=== PATIENT | female | born 1980 | race Caucasian/White ===

== ENCOUNTER → 2017-11-19 10:12 | Outpatient (CLI) | payer OTHER, MEDICAID, SELFPAY ==
[2017-11-19 11:00] LABS: Basophils Percent Auto 0.7 % (0-2); Eosinophils Percent Auto 0.5 % (2-4); Hematocrit 38.8 % (36-46); Hemoglobin 12.8 g/dL (12.0-16.0); Mean Corpuscular HGB Conc 33.1 % (30-36); Mean Corpuscular Hemoglobin 28.4 PG (26-34); Mean Corpuscular Volume 85.8 fL (80-100); Monocytes Percent Auto 5.3 % (3-14); Neutrophils Absolute Auto 5000 /uL (3000-5900); Neutrophils Percent Auto 72.5 % (50-75); Red Blood Cell Count 4.52 X10^6/uL (4.0-5.2); Red Cell Distribution Width 14.8 % (11.6-14.8); White Blood Cell Count 6.9 X10^3/uL (4.5-11.0)
[2017-11-19 11:06] LABS: Add Manual Diff / Slide Review SLIDE REVIEW; Platelet Count 184 X10^3/uL (150-400)
[2017-11-19 11:10] LABS: Alanine Aminotransferase 27 IU/L (9-52); Albumin 4.5 g/dL (3.5-5.0); Albumin Globulin Ratio 1.7 (1.0-2.8); Alkaline Phosphatase 66 U/L (38-126); Aspartate Aminotransferase 23 IU/L (14-36); BUN Creatinine Ratio 12.9 (6-22); Bilirubin Total 0.3 mg/dL (0.2-1.3); Calcium 9.2 mg/dL (8.4-10.2); Cholesterol 230 mg/dL (140-199); Estimated Glomerular Filt Rate > 60.0 mL/min (>60); Globulin 2.7 g/dL (1.7-4.1); Glucose 90 mg/dL (70-100); HDL Cholesterol 61 mg/dL (40-60); HEMOLYSIS < 15 (0-50); LDL Cholesterol Calculated 157 mg/dL (<100); Potassium 4.7 mmol/L (3.4-5.1); Sodium 141 mmol/L (137-145); Total Protein 7.2 g/dL (6.3-8.2); Triglycerides 62 mg/dL (35-150)
== END ==
PROVIDERS: PCP Physician Assistant; Visit Provider Physician Assistant
DX: Z51.81 Encounter for therapeutic drug level monitoring (principal); E78.2 Mixed hyperlipidemia; F32.9 Major depressive disorder, single episode, unspecified; R23.9 Unspecified skin changes
CPT/HCPCS: 36415; 80053; 80061; 85025

== ENCOUNTER 2017-11-19 15:23 | Emergency (ER) | payer OTHER, MEDICAID, SELFPAY ==
[2017-11-19 15:29] VITALS: BP 184/106; PULSE 152; RESP 28; TEMP 36.9; O2SAT 100; BMI 30.7
--- NOTE | 2017-11-19 15:31 | ED.NEUROSD ---
HPI - Neuro Symptoms/Deficit General Chief Complaint: Neuro Symptoms/Deficit Stated Complaint: Headache Time Seen by Provider: 11/19/17 15:31 Source: patient Mode of arrival: ambulatory Limitations: no limitations History of Present Illness HPI Narrative: 37-year-old female with a history of Nicole's palsy and left-sided facial numbness presents concerned that she may have bleeding in her brain. She had an MRI performed September that was initially read as normal, but after seeing neurologist on Wednesday, an addendum was added with a note that a 7 mm AVM may be present and conventional angiography was recommended if symptomatic. Patient notes that starting last night and into today the left-sided facial numbness has significantly increased and she is quite concerned. She also notes that she has a lot of anxiety about this and much of her worry started while she was on her home computer reviewing her MRI scan. Denies headache or weakness at this time Related Data Home Medications Medication Instructions Recorded Confirmed cetirizine [Zyrtec] 10 mg PO DAILY #0 08/30/12 11/19/17 fexofenadine 180 mg PO PRN #0 08/30/12 11/19/17 loratadine [Claritin] 10 mg PO QDAY #0 08/30/12 11/19/17 calcium carb-magnesium carb 1 tab PO QDAY #0 05/13/16 11/19/17 multivitamin [Multiple Vitamins] 1 tab PO QDAY #0 07/28/16 11/19/17 acetaminophen 325 mg PO PRN PRN 11/19/17 11/19/17 ibuprofen 200 mg PO PRN PRN 11/19/17 11/19/17 sertraline [Zoloft] 100 mg PO QHS 11/19/17 11/19/17 Previous Rx's Medication Instructions Recorded ondansetron 4 mg PO Q6-8HP PRN #30 tab 10/14/17 lamotrigine 100 mg tablet 50 mg PO TID #45 tab 11/09/17 Allergies Allergy/AdvReac Type Severity Reaction Status Date / Time Penicillins AdvReac Severe TONGUE / Unverified 11/09/17 12:51 FACIAL SWELLING tramadol AdvReac Intermediate BAD Unverified 11/09/17 12:51 HEADACHES, VOMITING TREES Allergy Severe SEVERE Uncoded 11/09/17 12:51 HIVES Review of Systems Review of Systems All systems reviewed & are unremarkable except as noted in HPI and below Constitutional Denies chills, Denies fever(s), Denies lethargy and Denies weakness Eyes Denies change in vision, Denies eye discharge, Denies irritation and Denies loss of vision ENT Ears, Nose, Mouth, and Throat: Denies change in voice, Denies neck pain and Denies sore throat Cardiovascular Denies chest pain, Denies irregular heart rhythm, Denies lightheadedness, Denies palpitations, Denies dyspnea, Denies dyspnea on exertion and Denies orthopnea Respiratory Denies cough, Denies dyspnea, Denies dyspnea on exertion and Denies wheezing Gastrointestinal Gastrointestinal: Denies abdominal pain, Denies change in bowel habits, Denies diarrhea, Denies nausea and Denies vomiting Genitourinary Denies hematuria, Denies flank pain, Denies urinary incontinence and Denies urinary urgency Musculoskeletal Denies abnormal gait, Denies neck pain, Reports numbness and Reports tingling Integumentary/Breasts Denies pruritus, Denies erythema, Denies rash and Denies wounds Neurologic Denies abnormal speech, Denies abnormal gait, Denies confusion, Denies loss of vision, Reports numbness, Reports tingling, Reports paresthesias and Denies weakness Psychiatric Denies anxiety, Denies confusion, Denies depression, Denies homicidal ideation and Denies suicidal ideation Endocrine Denies palpitations Hematologic/Lymphatic Denies easy bruising Allergic/Immunologic Denies wheezing PFSH Medical History Depression (Chronic 11/03/10) Mixed hyperlipidemia (Chronic 02/06/15) Binge eating disorder (Chronic 02/06/15) Gastroesophageal reflux disease (Chronic 02/06/15) Scoliosis (and kyphoscoliosis), idiopathic (Chronic 02/06/15) Spinal stenosis of lumbar region without neurogenic claudication (Chronic 02/06/15) Surgical History History of tonsillectomy Status post adenoidectomy Family History Father Age: 54 Hypertension Mother Age: 53 Arthritis Grandfather Alcoholic Social History Smoking Status: Former smoker Exam Initial Vital Signs Initial Vital Signs: Vital Signs Temperature 98.5 F 11/19/17 15:29 Pulse Rate 152 H 11/19/17 15:29 Respiratory Rate 28 H 11/19/17 15:29 Blood Pressure 184/106 H 11/19/17 15:29 Pulse Oximetry 100 11/19/17 15:29 Const General: cooperative and well developed Nutritional Appearance: well nourished Orientation: alert, awake, oriented x3 and not confused HENVA Head: normocephalic and atraumatic Ears: external ears normal and TM's normal bilaterally Nose: external nose normal and No nasal discharge Face and sinus: sinuses nontender, face symmetric, no sinus tenderness and No dry mucous membranes Mouth: oral mucosae normal and moist mucous membranes Teeth and gingiva: dentition normal Throat: tonsils normal and uvula midline Eyes General: appearance normal, both eyes and all related structures Eyelids: eyelids normal Conjunctivae: conjunctivae normal Sclera: sclerae normal Pupils: PERRL EOM: EOM intact bilaterally Neck Neck: normal visual inspection, trachea midline, No lymphadenopathy, No midline deformity and No JVD Lymphatic: No lymphedema Chest Chest: normal inspection of the chest Resp Effort & Inspection: normal respiratory effort, able to speak in complete sentences, no respiratory distress and no use of accessory muscles Auscultation: clear to auscultation bilaterally, no rales, no rhonchi and no wheezes Cardio Rate: regular rate Rhythm: regular rhythm Heart Sounds: no click, no gallops, no murmurs and no rubs Pulses: normal peripheral pulses GI Inspection: non-distended Palpation: soft, no hepatosplenomegaly, No guarding, No pulsatile mass and No tender Auscultation: normal bowel sounds Back/Spine/Pelvis Back: No CVA tenderness Cervical Spine: cervical ROM normal and No pain with cervical ROM Thoracic/Lumbar Spine: thoracic and lumbar spine normal to inspection Skin General: no rashes or lesions noted, No jaundice and No petechiae Neuro General: alert, oriented x3, gait normal and no focal motor deficits Cranial Nerves: CN's II-XI intact bilaterally Speech: speech normal Motor: strength 5/5 throughout Sensory Exam: other (Patient notes diminished sensation of left side of face) Extrem General: full ROM, no clubbing, cyanosis or edema, no pedal edema and no calf tenderness Psych Appearance: well kempt Mental Status: mental status grossly normal and other (Very anxious and initially tearful) Mood: other (Very anxious and initially tearful) Attitude: cooperative Thought Content: normal and suicidality Judgment: judgment good Course Orders Ordered: ED Orders 11/19/17 15:31 CT head/brain wo con Stat Discontinued Medications Lorazepam (Ativan) 0.5 mg PO NOW ONE Stop: 11/19/17 16:31 Last Admin: 11/19/17 16:43 Dose: 0.5 mg Consultations Consultation #1: I discussed and reviewed patient's old MRI with Dr. Hari Santiago in Radiology. He recommends CT of the head without contrast for acute bleed evaluation. MRI is not indicated at this time. Time: 15:36 Vital Signs - 8 hr 11/19/17 15:29 11/19/17 16:35 11/19/17 17:08 Temperature 98.5 F Pulse Rate 152 H 98 H 75 Respiratory Rate 28 H 16 16 Blood Pressure 184/106 H Blood Pressure [Left Arm] 137/100 H 137/100 H Pulse Oximetry 100 100 100 MDM - Neuro Symptoms/Deficit Imaging Data CT scan - head: Radiologist's impression: PROCEDURE: CT HEAD/BRAIN WO CON INDICATIONS: left sided facial numbness TECHNIQUE: Noncontrast 4.5 mm thick angled axial sections acquired from the foramen magnum to the vertex, with coronal and sagittal reformats. For radiation dose reduction, the following was used: automated exposure control, adjustment of mA and/or kV according to patient size. COMPARISON: [facility], MR, BRAIN WITHOUT CONTRAST, 10/01/2017, 18:51. FINDINGS: Image quality: Excellent. CSF spaces: Basal cisterns are patent. No extra-axial fluid collections. Ventricles are normal in size and shape. Brain: No midline shift. No intracranial masses or hemorrhage. Multiple punctate calcifications noted in the right cerebellar hemisphere possibly to the vascular malformations. Mejia-white matter interface is normal. Skull and face: Calvarium and visualized facial bones are intact, without suspicious lesions. Sinuses: Visualized sinuses and mastoids are clear. IMPRESSION: No acute intracranial disease process. Dictated by: Elida Blackman MD, PhD on 11/19/2017 at 15:54 Approved by: Elida Blackman MD, PhD on 11/19/2017 at 16:02 [facility] Narrative Medical decision making narrative: 37-year-old female with a history of Nicole's palsy and what sounds to be recently diagnosed trigeminal neuralgia presenting with increasing numbness of the left side of her face and significant anxiety. She began having symptoms as she reviewed her MRI scans at home and saw things that she could not explain and was quite concerned. She thought there was midline shift the brain and there was significant blood in the cerebellum. 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 After significant reassurance here, repeat head imaging with CT at Radiology recommendation and Ativan, she felt much better and was discharged home with advice to continue to follow with Neurology and fill the scripts for the medication she was prescribed 3 days ago. Discharge Plan Departure Patient Disposition: Home, Self-Care Clinical Impression: Left sided numbness Discharge Date/Time: 11/19/17 17:41 Interventions: ED Discharge Assessment Last Done: 11/19/17 17:39 Instructions: DI for Headache Activity Restrictions/Additional Instructions: Thank you for trusting us with your care today. No dangerous findings were identified on your workup today. Please follow-up with your primary care provider or urologist if your symptoms are not improving. Return to the ER for new or worsening symptoms. Prescriptions: No Action lamotrigine [Lamictal] 100 mg tablet 50 mg PO TID Qty: 45 RF: 3 cetirizine [Zyrtec] 10 mg Tablet 10 mg PO DAILY Qty: 0 RF: 0 fexofenadine 180 MG tablet 180 mg PO PRN Qty: 0 RF: 0 loratadine [Claritin] 10 mg Tablet 10 mg PO QDAY Qty: 0 RF: 0 calcium carb-magnesium carb 1 tab PO QDAY Qty: 0 RF: 0 multivitamin [Multiple Vitamins] 1 EACH tablet 1 tab PO QDAY Qty: 0 RF: 0 ondansetron 4 MG tablet,disintegrating 4 mg PO Q6-8HP PRNQty: 30 RF: 1 acetaminophen 325 mg Tablet 325 mg PO PRN PRN (Reason: Headache) RF: 0 ibuprofen 200 mg Tablet 200 mg PO PRN PRN (Reason: Headache) RF: 0 sertraline [Zoloft] 100 MG tablet 100 mg PO QHS RF: 0
[2017-11-19 16:35] VITALS: BP 137/100; PULSE 98; RESP 16; O2SAT 100
[2017-11-19] MEDS: LORazepam 0.5 MG TABLET PO (16:43)
[2017-11-19 17:08] VITALS: BP 137/100; PULSE 75; RESP 16; O2SAT 100
== END 2017-11-19 17:41 | disposition home or self-care (01) ==
PROVIDERS: Emergency Provider Emergency Medicine; PCP Physician Assistant
DX: R20.0 Anesthesia of skin (principal)
CPT/HCPCS: 70450; 93041; 99283; 99291

== ENCOUNTER → 2017-12-13 06:28 | Outpatient (CLI) | payer OTHER, MEDICAID, SELFPAY ==
--- NOTE | 2017-12-13 | DI.MRI.S_ITS ---
PROCEDURE: MR BRAIN (IAC) WWO CON INDICATIONS: BELLS PALSY TECHNIQUE: Noncontrast sagittal T1 spin echo, axial FLAIR, axial gradient echo, axial diffusion and ADC through the brain. Axial thin-slice 3D CISS, coronal TruFISP, axial T1 spin echo with fat saturation through the internal auditory canals. After the administration of contrast, thin slice axial and coronal T1 spin echo with fat saturation through the internal auditory canals, and axial T1 spin echo with fat saturation through the brain. COMPARISON: [facility], CT, CT HEAD/BRAIN WO CON, 11/19/2017, 15:34. [facility], MR, BRAIN WITHOUT CONTRAST, 10/01/2017, 18:51. FINDINGS: Image quality: Excellent. Cerebellopontine angles: No cerebellopontine angle masses. Inner ear structures appear normally formed. No suspicious enhancement in the internal auditory canal or along the course of the 7th cranial nerve. CSF spaces: Ventricles are normal in size and shape. No extra-axial fluid collections. Basal cisterns are patent. Brain: No intracranial bleeds or mass effects. Mejia-white matter interface is intact. No abnormal intracranial brain parenchymal or cranial nerve enhancement. There is a venous angioma in the inferior right cerebellum, with an adjacent focus of hemosiderin deposition (previously present also on brain MRI performed 10/01/17). Diffusion weighted images demonstrate no acute ischemic insults. Brainstem appears normal. Normal intravascular flow voids are present. Skull and face: Calvarial marrow signal is normal. Orbits appear normal. Sinuses: Sinuses and mastoids are clear. IMPRESSION: The skull base cranial nerves appear normal, free of mass or abnormal enhancement. Incidental note is made of what appears to be inferior right cerebellar hemisphere venous angioma, with and draining vein tracking inferiorly along the anterior right side paramedian border of the cerebellum, with a nearby stable appearing focus of hemosiderin deposition within the substance of the right cerebellar hemisphere. This is best seen on the contrast enhanced series 13, image 5 and on the susceptibility sensitive series 10 image 4. Dictated by: Mele Ortiz M.D. on 12/13/2017 at 8:13 Approved by: Mele Ortiz M.D. on 12/13/2017 at 8:32
== END ==
PROVIDERS: PCP Physician Assistant; Visit Provider Psychiatry & Neurology Neurology
DX: G51.0 Bell's palsy (principal)
CPT/HCPCS: 70553

== ENCOUNTER → 2018-03-24 13:00 | Outpatient (CLI) | payer OTHER, MEDICAID, SELFPAY | PROVIDERS: PCP Physician Assistant | DX: Z23 Encounter for immunization (principal) | CPT/HCPCS: 90471; 90686 ==

== ENCOUNTER → 2018-07-08 07:26 | Outpatient (CLI) | payer OTHER, MEDICAID, SELFPAY ==
--- NOTE | 2018-07-08 | DI.MRI.S_ITS ---
PROCEDURE: MR HEAD/BRAIN WO/W CON INDICATIONS: CEREBROVASCULAR AVM TECHNIQUE: Noncontrast axial T1 spin echo, axial T2 fast spin echo, sagittal and axial FLAIR, coronal T2 fast spin echo, axial gradient echo, axial diffusion and ADC through the brain. After the administration of contrast, axial and coronal 3D VIBE or T1 spin echo with fat saturation through the brain. COMPARISON: [facility], MR, BRAIN WITHOUT CONTRAST, 10/01/2017, 18:51. [facility], MR, MR BRAIN (IAC) WWO CON, 12/13/2017, 7:12. FINDINGS: Image quality: Excellent. CSF Spaces: Basal cisterns are patent. No extra-axial fluid collections. Ventricles are normal in size and shape. Brain: No midline shift. No acute intracranial bleeds or masses. The 7 mm diameter focus of low gradient echo signal intensity within the right inferior cerebellum is unchanged. Branching enhancement within the right mid cerebellar hemisphere is present, as before, with a prominent draining vein, which drains into the right transverse sinus, as before. The brainstem appears normal. Diffusion-weighted images demonstrate no acute ischemic insults. No chronic ischemic insults. Normal intravascular flow voids are present. Skull and face: Calvarial marrow is normal in signal. Orbits appear normal. Sinuses: Sinuses and mastoids appear clear. IMPRESSION: 1. No change in right cerebellar venous angioma, with adjacent, presumably secondary/acquired cavernous hemangioma. Small amount of surrounding chronic hemorrhagic products is unchanged. 2. No acute process. Dictated by: Darlene Garcia M.D. on 07/08/2018 at 8:56 Approved by: Darlene Garcia M.D. on 07/08/2018 at 9:03
[2018-07-08 09:07] LABS: Cholesterol 224 mg/dL (140-199); HDL Cholesterol 51 mg/dL (40-60); LDL Cholesterol Calculated 154 mg/dL (<100); Triglycerides 97 mg/dL (35-150)
== END ==
PROVIDERS: PCP Physician Assistant; Visit Provider Specialist
DX: Q28.2 Arteriovenous malformation of cerebral vessels (principal); E78.2 Mixed hyperlipidemia
CPT/HCPCS: 36415; 70553; 80061

== ENCOUNTER → 2020-03-18 10:44 | Outpatient (CLI) | payer OTHER, SELFPAY ==
[2020-03-18 11:10] LABS: Add Manual Diff / Slide Review NO; Basophils Absolute Auto 100 /uL (0-100); Basophils Percent Auto 0.9 % (0-2); Eosinophils Absolute Auto 100 /uL (0-450); Eosinophils Percent Auto 1.1 % (2-4); Hematocrit 37.5 % (36-46); Lymphocytes Absolute Auto 1700 /uL (1100-4500); Lymphocytes Percent Auto 23.5 % (25-40); Mean Corpuscular Volume 81.1 fL (80-100); Monocytes Absolute Auto 500 /uL (0-900); Neutrophils Absolute Auto 5000 /uL (1500-7000); Neutrophils Percent Auto 67.5 % (50-75); Platelet Count 208 X10^3/uL (150-400); Red Blood Cell Count 4.62 X10^6/uL (4.0-5.2); Red Cell Distribution Width 18.1 % (11.6-14.8); White Blood Cell Count 7.4 X10^3/uL (4.5-11.0)
[2020-03-18 11:30] LABS: Erythrocyte Sedimentation Rate 13 MM/HR (0-20)
[2020-03-18 11:31] LABS: Alanine Aminotransferase 23 IU/L (<35); Albumin 4.1 g/dL (3.5-5.0); Albumin Globulin Ratio 1.6 (1.0-2.8); Alkaline Phosphatase 106 U/L (38-126); Aspartate Aminotransferase 24 IU/L (14-36); BUN Creatinine Ratio 11.7 (6-22); Bilirubin Total 0.3 mg/dL (0.2-1.3); Blood Urea Nitrogen 7 mg/dL (7-17); C-Reactive Protein Quant 0.7 mg/dL (<1.0); Calcium 9.3 mg/dL (8.4-10.2); Carbon Dioxide 27 mmol/L (22-32); Chloride 105 mmol/L (98-107); Cholesterol 239 mg/dL (140-199); Estimated Glomerular Filt Rate > 60.0 mL/min (>60); Globulin 2.5 g/dL (1.7-4.1); Glucose 96 mg/dL (70-100); HDL Cholesterol 58 mg/dL (40-60); HEMOLYSIS < 15 (0-50); LDL Cholesterol Calculated 154 mg/dL (<100); Potassium 4.6 mmol/L (3.4-5.1); Sodium 139 mmol/L (137-145); Total Protein 6.6 g/dL (6.3-8.2); Triglycerides 133 mg/dL (35-150); Uric Acid 4.1 mg/dL (2.5-6.2)
[2020-03-18 11:33] LABS: Rheumatoid Factor < 8.6 IU/mL (<12.0)
[2020-03-18 11:58] LABS: TSH w/ Reflex to FT4 1.03 uIU/mL (0.47-4.68)
[2020-03-20 21:08] LABS: CCP Antibodies IgG/IgA 3 units (0-19)
== END ==
PROVIDERS: PCP Registered Nurse Diabetes Educator; Referring Provider Registered Nurse Diabetes Educator; Visit Provider Registered Nurse Diabetes Educator
DX: E66.9 Obesity, unspecified (principal); E78.2 Mixed hyperlipidemia; M25.50 Pain in unspecified joint
CPT/HCPCS: 36415; 80053; 80061; 84443; 84550; 85025; 85651; 86140; 86200; 86430

== ENCOUNTER → 2020-04-30 14:23 | Outpatient (CLI) | payer OTHER, SELFPAY ==
--- NOTE | 2020-04-30 14:25 | DI.RAD.S_ITS ---
PROCEDURE: XR KNEE STANDING BI INDICATIONS: bilateral knee pain since , no trauma TECHNIQUE: Single frontal view of the knees bilaterally were obtained. COMPARISON: None. FINDINGS: Bones: No acute fractures or dislocations. Patellar alignment is normal on the sunrise view. No suspicious bony lesions. Joint spaces appear normal with weightbearing. Soft tissues: No knee joint effusions. No suspicious soft tissue calcification. IMPRESSION: No trauma found. No significant joint space narrowing. Normal alignment. Dictated by: Mele Ortiz M.D. on 04/30/2020 at 15:00 Approved by: Mele Ortiz M.D. on 04/30/2020 at 15:00
[2020-04-30 18:09] LABS: BUN Creatinine Ratio 16.2 (6-22); Blood Urea Nitrogen 12 mg/dL (7-17); Calcium 8.8 mg/dL (8.4-10.2); Carbon Dioxide 30 mmol/L (22-32); Chloride 102 mmol/L (98-107); Estimated Glomerular Filt Rate > 60.0 mL/min (>60); Glucose 99 mg/dL (70-100); HEMOLYSIS < 15 (0-50); Potassium 4.1 mmol/L (3.4-5.1); Sodium 138 mmol/L (137-145)
== END ==
PROVIDERS: PCP Registered Nurse Diabetes Educator; Referring Provider Registered Nurse Diabetes Educator; Visit Provider Registered Nurse Diabetes Educator
DX: M25.562 Pain in left knee (principal); M25.561 Pain in right knee; I10 Essential (primary) hypertension
CPT/HCPCS: 36415; 73565; 80048

== ENCOUNTER → 2021-07-16 15:16 | Outpatient (CLI) | payer OTHER, SELFPAY ==
[2021-07-16 16:21] LABS: COVID19 -Nasal RAPID Negative (Negative)
== END ==
PROVIDERS: PCP Registered Nurse Diabetes Educator; Referring Provider Nurse Practitioner Family; Visit Provider Nurse Practitioner Family
DX: Z20.822 Contact with and (suspected) exposure to COVID-19 (principal)
CPT/HCPCS: 87635

== ENCOUNTER 2021-08-16 14:48 | Emergency (ER) | payer OTHER, SELFPAY ==
[2021-08-16 15:07] VITALS: BP 147/91; PULSE 89; RESP 18; TEMP 35.7; O2SAT 99; BMI 36.9
[2021-08-16 16:37] LABS: Add Manual Diff / Slide Review NO; Basophils Absolute Auto 100 /uL (0-100); Basophils Percent Auto 0.8 % (0-2); Eosinophils Absolute Auto 0 /uL (0-450); Eosinophils Percent Auto 0.4 % (2-4); Hematocrit 36.1 % (36-46); Hemoglobin 11.6 g/dL (12.0-16.0); Lymphocytes Absolute Auto 800 /uL (1100-4500); Lymphocytes Percent Auto 7.9 % (25-40); Mean Corpuscular HGB Conc 32.2 % (30-36); Mean Corpuscular Hemoglobin 25.7 PG (26-34); Mean Corpuscular Volume 79.8 fL (80-100); Monocytes Absolute Auto 400 /uL (0-900); Monocytes Percent Auto 4.6 % (3-14); Neutrophils Absolute Auto 8400 /uL (1500-7000); Neutrophils Percent Auto 86.3 % (50-75); Platelet Count 196 X10^3/uL (150-400); Red Blood Cell Count 4.53 X10^6/uL (4.0-5.2); White Blood Cell Count 9.7 X10^3/uL (4.5-11.0)
[2021-08-16 16:57] LABS: Alanine Aminotransferase 26 IU/L (<35); Albumin 4.6 g/dL (3.5-5.0); Albumin Globulin Ratio 1.6 (1.0-2.8); Alkaline Phosphatase 75 U/L (38-126); BUN Creatinine Ratio 10.2 (6-22); Bilirubin Total 0.8 mg/dL (0.2-1.3); Blood Urea Nitrogen 12 mg/dL (7-17); Calcium 10.1 mg/dL (8.4-10.2); Carbon Dioxide 25 mmol/L (22-32); Chloride 105 mmol/L (98-107); Globulin 2.8 g/dL (1.7-4.1); Glucose 100 mg/dL (70-100); Lipase 130 U/L (23-300); Sodium 136 mmol/L (137-145); Total Protein 7.4 g/dL (6.3-8.2)
[2021-08-16 16:59] LABS: HEMOLYSIS 195 (0-50)
[2021-08-16 17:01] LABS: Aspartate Aminotransferase 58 IU/L (14-36); Potassium 5.1 mmol/L (3.4-5.1)
--- NOTE | 2021-08-16 18:07 | DI.CT.S_ITS ---
PROCEDURE: CT ABDOMEN PELVIS W CON INDICATIONS: RLQ Abd pain TECHNIQUE: After the administration of oral and IV contrast, axial sections were acquired from the lung bases to the pubic symphysis. Coronal and sagittal reformats were performed. For radiation dose reduction, the following was used: automated exposure control, adjustment of mA and/or kV according to patient size. COMPARISON: None. FINDINGS: Image quality: Excellent. Lung bases: Unremarkable. Heart: No significant findings. ABDOMEN: Liver: No masses. Gallbladder: Decompressed. Biliary ducts: Nondilated. Pancreas: Normal. Spleen: Normal size. Adrenal Glands: No nodules. Kidneys and Ureters: Symmetric enhancement. Mild right hydronephrosis. No intrarenal calculi on either side. Mild right hydroureter to the level of the ureterovesicular junction. Punctate stone at the right UVJ. Stomach and Bowel: Stomach, small bowel loops, and colon are unremarkable. Normal appendix. Occasional sigmoid diverticulosis. Peritoneum: No abnormal intraperitoneal fluid. No free air. Ventral Wall: No hernia. Abdominal Nodes: No retroperitoneal or mesenteric adenopathy by size criteria. Vessels: Aorta and inferior vena cava are normal in size. PELVIS: Pelvic Organs: Normal uterus. Multiple follicles on each ovary. Bladder: Normal bladder wall thickness.. No stones. Pelvic Nodes: No enlarged lymph nodes. Miscellaneous: No inguinal hernias are seen. Bones: Moderate scoliosis of the lumbar spine. IMPRESSION: 1. Punctate right ureterovesicular junction stone causing mild hydroureteronephrosis. Dictated by: Darlene Shields M.D. on 08/16/2021 at 19:18 Approved by: Darlene Shields M.D. on 08/16/2021 at 19:22
--- NOTE | 2021-08-16 18:07 | ED_ITS ---
HPI - General Adult General Chief complaint: Urogenital-Female Stated complaint: Rt lower quad abdominal pain, nausea/vomitting Time Seen by Provider: 08/16/21 18:07 Source: patient and family Mode of arrival: Ambulatory History of Present Illness HPI narrative: 40-year-old female here for evaluation right lower quadrant abdominal pain wr apping around to her back that was sudden onset earlier today. Has had urinary frequency and urgency without any burning. She has had irregular menstrual cycles recently. States she has been getting them about every 2 weeks and this to be about the time where she would have 1 of the cycles. No fevers. Has never had a kidney stone before. Took some Tylenol and ibuprofen without any improvement. Patient not on control. She reports some improvement of her symptoms now compared to earlier today. No blood in her urine. No change in bowel habits. Related Data Home Medications Medication Instructions Recorded Confirmed fexofenadine 180 mg tablet 180 mg PO PRN #0 08/30/12 04/30/20 multivitamin (Multiple Vitamins) 1 tab PO QDAY #0 07/28/16 04/30/20 acetaminophen 325 mg tablet 325 mg PO PRN PRN 11/19/17 04/30/20 ibuprofen 200 mg tablet 200 mg PO PRN PRN 11/19/17 04/30/20 Cetirizine 10 mg (Zyrtec) See Rx Instructions .ROUTE .COMPLEX 05/04/18 04/30/20 Loratadine 10 mg (Claritin) See Rx Instructions .ROUTE .COMPLEX 05/04/18 04/30/20 sertraline 100 mg tablet 200 mg PO DAILY tab 08/10/18 04/30/20 aripiprazole 10 mg tablet (Abilify) 10 mg PO DAILY 03/13/20 04/30/20 lamotrigine 200 mg tablet 100 mg PO BID tab 03/13/20 04/30/20 Previous Rx's Medication Instructions Recorded ondansetron 4 mg disintegrating 4 mg PO Q6-8HP PRN #30 tab 08/05/18 tablet lisinopril 10 1 tab PO DAILY #90 tab 05/01/20 mg-hydrochlorothiazide 12.5 mg tablet Allergies Allergy/AdvReac Type Severity Reaction Status Date / Time Penicillins AdvReac Severe TONGUE / Verified 04/30/20 13:49 FACIAL SWELLING tramadol AdvReac Intermediate BAD Verified 04/30/20 13:49 HEADACHES, VOMITING TREES Allergy Severe SEVERE Uncoded 04/30/20 13:49 HIVES Review of Systems Constitutional Constitutional: Denies fever(s) Cardiovascular Cardiovascular: Reports system reviewed and no additional complaints, except as documented Respiratory Respiratory: Reports system reviewed and no additional complaints, except as documented Gastrointestinal Gastrointestinal: Reports as per HPI and Reports system reviewed and no additional complaints, except as documented Genitourinary Genitourinary: Reports system reviewed and no additional complaints, except as documented and Reports as per HPI Musculoskeletal Musculoskeletal: Reports system reviewed and no additional complaints, except as documented and Reports as per HPI Hematologic/Lymphatic On Anticoagulants: No Patient History Medical History Allergic rhinitis Anxiety Arthritis Binge eating disorder (02/06/15) Depression (11/03/10) Gastroesophageal reflux disease (02/06/15) Hypertension Knee pain Mixed hyperlipidemia (02/06/15) Scoliosis (and kyphoscoliosis), idiopathic (02/06/15) Sleep apnea Spinal stenosis of lumbar region without neurogenic claudication (02/06/15) Surgical History History of tonsillectomy (1992) Hx of oral surgery (1983) Status post adenoidectomy (1992) Family History Father Age: 58 Hypertension Mother Age: 57 Arthritis Grandfather Alcoholic Social History Smoking Status: Former smoker Tobacco: How many years used: 5 second hand exposure: No alcohol intake: former substance use type: does not use Smoking Status: Former smoker alcohol intake frequency: a few times a month Substance Use Type: does not use Exam Initial Vital Signs Initial Vital Signs: Vital Signs Temperature 96.2 F L 08/16/21 15:07 Pulse Rate 89 08/16/21 15:07 Respiratory Rate 18 08/16/21 15:07 Blood Pressure 147/91 H 08/16/21 15:07 Pulse Oximetry 99 08/16/21 15:07 Const General: cooperative, comfortable and well developed Limitations: mental status not altered HENMT Head: normal to inspection and normocephalic Resp Effort & Inspection: normal respiratory effort Cardio Rate: regular rate GI Inspection: non-distended Palpation: soft and No tender Back/Spine/Pelvis Back: No CVA tenderness Skin Lesions: no lesions Rashes: no rashes Neuro General: patient alert, patient awake and moves all extremities Extrem General: capillary refill normal Psych Appearance: grossly normal and well kempt Course Orders Ordered: ED Orders 08/16/21 16:00 Complete Blood Count AUTO DIFF Stat Comprehensive Metabolic Panel Stat Lipase Stat 08/16/21 18:07 CT abdomen pelvis w con Stat Discontinued Medications Hydrocodone Bitart/Acetaminophen (Hydrocodone/Acet 5/325 Prepack) 1 bottle MISC SEEINSTR ONE Stop: 08/16/21 19:44 Last Admin: 08/16/21 19:58 Dose: 1 bottle Documented by: MIGUEL Ondansetron HCl (Ondansetron 4 Mg Odt Prepack) 1 bottle MISC SEEINSTR ONE Stop: 08/16/21 19:44 Last Admin: 08/16/21 19:58 Dose: 1 bottle Documented by: MIGUEL Vital Signs Vital signs: Vital Signs - 8 hr 08/16/21 20:06 Pulse Rate 61 Respiratory Rate 18 Blood Pressure 139/73 Pulse Oximetry 99 Medical Decision Making Lab Data Lab results reviewed: Yes I reviewed the patient's lab results. Result diagrams: 08/16/21 16:00 08/16/21 16:00 Labs: Lab Results 08/16/21 08/16/21 Range/Units 16:00 16:00 WBC 9.7 (4.5-11.0) X10^3/uL RBC 4.53 (4.0-5.2) X10^6/uL Hgb 11.6 L (12.0-16.0) g/dL Hct 36.1 (36-46) % MCV 79.8 L (80-100) fL MCH 25.7 L (26-34) PG MCHC 32.2 (30-36) % RDW 17.0 H (11.6-14.8) % Plt Count 196 (150-400) X10^3/uL Neut % (Auto) 86.3 H (50-75) % Lymph % (Auto) 7.9 L (25-40) % [place] % (Auto) 4.6 (3-14) % Eos % (Auto) 0.4 L (2-4) % Baso % (Auto) 0.8 (0-2) % Neut # (Auto) 8400 H (6439-5006) /uL Lymph # (Auto) 800 L (2049-0659) /uL [place] # (Auto) 400 (0-900) /uL Eos # (Auto) 0 (0-450) /uL Baso # (Auto) 100 (0-100) /uL Sodium 136 L (137-145) mmol/L Potassium 5.1 (3.4-5.1) mmol/L Chloride 105 (98-107) mmol/L Carbon Dioxide 25 (22-32) mmol/L BUN 12 (7-17) mg/dL Creatinine 1.18 H (0.52-1.04) mg/dL Estimated GFR 51.0 L (>60) mL/min BUN/Creatinine Ratio 10.2 (6-22) Glucose 100 (70-100) mg/dL Calcium 10.1 (8.4-10.2) mg/dL Total Bilirubin 0.8 (0.2-1.3) mg/dL AST 58 H (14-36) IU/L ALT 26 (<35) IU/L Alkaline Phosphatase 75 (38-126) U/L Total Protein 7.4 (6.3-8.2) g/dL Albumin 4.6 (3.5-5.0) g/dL Globulin 2.8 (1.7-4.1) g/dL Albumin/Globulin Ratio 1.6 (1.0-2.8) Lipase 130 (23-300) U/L Point of Care Testing Test Results Negative Urine Dip Bedside Urine Glucose Negative Bedside Urine Bilirubin - Negative Bedside Urine Ketone - Negative Urine Specific [place] 1.020 Bedside Urine Occult Blood - Negative Bedside Urine pH 6.0 Bedside Urine Protein - Negative Bedside Urine Urobilinogen - Negative Bedside Urine Nitrite - Negative Bedside Urine Leukocytes - Negative Esterase Point of care testing: Point of Care Testing Test Results Negative Urine Dip Bedside Urine Glucose Negative Bedside Urine Bilirubin - Negative Bedside Urine Ketone - Negative Urine Specific [place] 1.020 Bedside Urine Occult Blood - Negative Bedside Urine pH 6.0 Bedside Urine Protein - Negative Bedside Urine Urobilinogen - Negative Bedside Urine Nitrite - Negative Bedside Urine Leukocytes - Negative Esterase Imaging Data CT scan - abdomen/pelvis: Radiologist's Impression: [place] [address] CT Scan Report Signed Patient: Maira Espana MR#: [id number] : 1980 Acct:[id number] Age/Sex: 40 / F Date of Service: 08/16/21 Loc: ED Accession Number: [id number] ?? Procedure: CT abdomen pelvis w con Ordering Provider: Emre Jaeger D.O. PROCEDURE:? CT ABDOMEN PELVIS W CON ? INDICATIONS:? RLQ Abd pain ? TECHNIQUE:? After the administration of oral and IV contrast, axial sections were acquired from the lung bases to the pubic symphysis.? Coronal and sagittal reformats were performed.? For radiation dose reduction, the following was used:? automated exposure control, adjustment of mA and/or kV according to patient size. ? COMPARISON:? None. ? FINDINGS:? Image quality:? Excellent.? ? Lung bases:? Unremarkable.? ? Heart:? No significant findings. ? ? ABDOMEN: Liver:? No masses. Gallbladder:? Decompressed. Biliary ducts:? Nondilated. Pancreas:? Normal. Spleen:? Normal size. Adrenal Glands:? No nodules. Kidneys and Ureters:? Symmetric enhancement.? Mild right hydronephrosis.? No intrarenal calculi on either side.? Mild right hydroureter to the level of the ureterovesicular junction.? Punctate stone at the right UVJ. ? Stomach and Bowel:? Stomach, small bowel loops, and colon are unremarkable.? Normal appendix.? Occasional sigmoid diverticulosis. Peritoneum:? No abnormal intraperitoneal fluid.? No free air.? ? Ventral Wall: ? No hernia.? Abdominal Nodes:? No retroperitoneal or mesenteric adenopathy by size criteria.? Vessels:? Aorta and inferior vena cava are normal in size.? ? PELVIS: Pelvic Organs:? Normal uterus.? Multiple follicles on each ovary. Bladder:? Normal bladder wall thickness..? No stones. Pelvic Nodes: No enlarged lymph nodes.? Miscellaneous: No inguinal hernias are seen. ? ? ? Bones:? Moderate scoliosis of the lumbar spine. ? ? IMPRESSION:? ? 1. Punctate right ureterovesicular junction stone causing mild hydroureteronephrosis. ? ? Dictated by: Darlene Shields M.D. on 08/16/2021 at 19:18 ? ? Approved by: Darlene Shields M.D. on 08/16/2021 at 19:22?? MDM Narrative Medical decision making narrative: Urine shows no signs of infection, kidney functions unremarkable. CT scan shows punctate right ureteral stone which does fit her presentation today. There is no signs of appendicitis. Her discomfort seems to be abdominal a not adnexal so feel that we can hold on a ultrasound for now. Discharge patient home with return precautions. She expressed understanding and agreement. Discharge Plan Departure Patient Disposition: Home Clinical Impression: Right ureteral calculus Instructions: DI for Kidney Stones Activity Restrictions/Additional Instructions: Take the pain medicine and nausea medication as needed. Return to the emergency department for any new or worsening symptoms. Prescriptions: No Action sertraline 100 mg tablet 200 mg PO DAILY 0RF lamotrigine 200 mg tablet 100 mg PO BID 0RF Cetirizine 10 mg (Zyrtec) See Rx Instructions .ROUTE .COMPLEX 0RF Label Comments: 1 TAB PO QDAY PRN Rx Instructions: 1 TAB PO QDAY PRN Loratadine 10 mg (Claritin) See Rx Instructions .ROUTE .COMPLEX 0RF Label Comments: 1 TAB PO PRN Rx Instructions: 1 TAB PO PRN fexofenadine 180 MG tablet 180 mg PO PRN Qty: 0 0RF multivitamin [Multiple Vitamins] 1 EACH tablet 1 tab PO QDAY Qty: 0 0RF ondansetron 4 mg tablet,disintegrating 4 mg PO Q6-8HP PRN (Reason: nausea and vomiting) Qty: 30 1RF aripiprazole [Abilify] 10 mg tablet 10 mg PO DAILY 0RF lisinopril-hydrochlorothiazide 10-12.5 mg tablet 1 tab PO DAILY Qty: 90 3RF acetaminophen 325 mg Tablet 325 mg PO PRN PRN (Reason: Headache) 0RF ibuprofen 200 mg Tablet 200 mg PO PRN PRN (Reason: Headache) 0RF Referrals: Rickey Diamond ARNP [Primary Care Provider] -
[2021-08-16] MEDS: ONDANSETRON 4 MG ODT PREPACK 1 BOTTLE MISC (19:58)
[2021-08-16] MEDS: HYDROCODONE/ACET 5/325 PREPACK 1 BOTTLE MISC (19:58)
[2021-08-16 20:06] VITALS: BP 139/73; PULSE 61; RESP 18; O2SAT 99
== END 2021-08-16 20:07 | disposition home or self-care (01) ==
PROVIDERS: Emergency Medicine; Emergency Provider Emergency Medicine; PCP Registered Nurse Diabetes Educator
DX: N13.2 Hydronephrosis with renal and ureteral calculous obstruction (principal); Z88.5 Allergy status to narcotic agent; Z87.891 Personal history of nicotine dependence
CPT/HCPCS: 36415; 74177; 80053; 81003; 81025; 83690; 85025; 99284; Q9967

== ENCOUNTER 2021-08-19 16:40 | Emergency (ER) | payer OTHER, SELFPAY ==
[2021-08-19 16:49] VITALS: BP 174/96; PULSE 68; RESP 22; TEMP 36.9; O2SAT 100
--- NOTE | 2021-08-19 17:15 | DI.US.S_ITS ---
PROCEDURE: US RENAL COMPLETE INDICATIONS: flank pain TECHNIQUE: Real-time scanning was performed of the kidneys and bladder, with image documentation. COMPARISON: [facility], CT, CT ABDOMEN PELVIS W CON, 08/16/2021, 18:24. FINDINGS: Kidneys: Kidneys are normal in size. Right kidney measures 12.1 cm long; left kidney measures 11.6 cm long. Right renal cortical thickness is 1.5 cm; left renal cortical thickness is 1.7 cm. Renal cortical echotexture is normal. No hydronephrosis or nephrolithiasis, although evaluation is mildly compromised by patient body habitus.. No suspicious solid mass lesions. Bladder: Pre-void bladder is nondistended, which limits evaluation. Miscellaneous: No free pelvic fluid. IMPRESSION: Prior right-sided hydronephrosis has resolved. Dictated by: Vicente Park M.D. on 08/19/2021 at 18:06 Approved by: Vicente Park M.D. on 08/19/2021 at 18:08
--- NOTE | 2021-08-19 17:21 | ED.ABDPAIN ---
HPI - Abdominal Pain General Chief Complaint: Abdominal Pain Stated Complaint: KIDNEY STONES Time Seen by Provider: 08/19/21 17:11 Source: patient Mode of arrival: Ambulatory History of Present Illness HPI narrative: 40-year-old female former smoker with history of kidney stones presents with a known right-sided kidney stone that was diagnosed over the weekend. She states that she had evaluation including labs and was sent home on typical therapies. She had been doing okay and then over the past 24 hours has had significant worsening of her symptoms that is more intense and more persistent than previous. She has been nauseated but denies vomiting. She states her pain is a bit worse when she moves and improves with rest but she still has episodes when it waxes and wanes without any obvious provocation. She denies urinary complaints such as you dysuria, frequency or urgency Related Data Home Medications Medication Instructions Recorded Confirmed fexofenadine 180 mg tablet 180 mg PO PRN #0 08/30/12 04/30/20 multivitamin (Multiple Vitamins) 1 tab PO QDAY #0 07/28/16 04/30/20 acetaminophen 325 mg tablet 325 mg PO PRN PRN 11/19/17 04/30/20 ibuprofen 200 mg tablet 200 mg PO PRN PRN 11/19/17 04/30/20 Cetirizine 10 mg (Zyrtec) See Rx Instructions .ROUTE .COMPLEX 05/04/18 04/30/20 Loratadine 10 mg (Claritin) See Rx Instructions .ROUTE .COMPLEX 05/04/18 04/30/20 sertraline 100 mg tablet 200 mg PO DAILY tab 08/10/18 04/30/20 aripiprazole 10 mg tablet (Abilify) 10 mg PO DAILY 03/13/20 04/30/20 lamotrigine 200 mg tablet 100 mg PO BID tab 03/13/20 04/30/20 Previous Rx's Medication Instructions Recorded ondansetron 4 mg disintegrating 4 mg PO Q6-8HP PRN #30 tab 08/05/18 tablet lisinopril 10 1 tab PO DAILY #90 tab 05/01/20 mg-hydrochlorothiazide 12.5 mg tablet hydrocodone 5 mg-acetaminophen 325 1 tab PO Q4-6H PRN #10 tab 08/19/21 mg tablet ketorolac 10 mg tablet 10 mg PO Q6H PRN #14 tab 08/19/21 ondansetron 4 mg disintegrating 4 mg PO TID-QID PRN #10 tab 08/19/21 tablet tamsulosin 0.4 mg capsule (Flomax) 0.4 mg PO DAILY #10 cap 08/19/21 Allergies Allergy/AdvReac Type Severity Reaction Status Date / Time Penicillins AdvReac Severe TONGUE / Verified 04/30/20 13:49 FACIAL SWELLING tramadol AdvReac Intermediate BAD Verified 04/30/20 13:49 HEADACHES, VOMITING TREES Allergy Severe SEVERE Uncoded 04/30/20 13:49 HIVES Review of Systems Review of Systems Narrative: GENERAL: Denies chills, fatigue, malaise, fever, sweats. HEENT: Denies sinus pain, ear pain, sore throat, difficulty swallowing, dizziness. RESPIRATORY: Denies dyspnea, cough, wheezing, hemoptysis, sputum. CARDIOVASCULAR: Denies chest pain, palpitations, orthopnea, edema, GASTROINTESTINAL: See HPI : See HPI MUSCULOSKELETAL: denies weakness, joint pain, or bony pain SKIN: Denies rash, skin lesions, or other NEUROLOGIC: Denies weakness, headache, numbness, change in speech, confusion, seizures, incoordination. PSYCHIATRIC: No concerning psychosocial issues. 12 point review of systems is negative except for those stated above Patient History Medical History (Updated 08/19/21 @ 18:26 by Uzair May DO) Allergic rhinitis Anxiety Arthritis Binge eating disorder (02/06/15) Depression (11/03/10) Gastroesophageal reflux disease (02/06/15) Hypertension Knee pain Mixed hyperlipidemia (02/06/15) Scoliosis (and kyphoscoliosis), idiopathic (02/06/15) Sleep apnea Spinal stenosis of lumbar region without neurogenic claudication (02/06/15) Surgical History History of tonsillectomy (1992) Hx of oral surgery (1983) Status post adenoidectomy (1992) Family History Father Age: 58 Hypertension Mother Age: 57 Arthritis Grandfather Alcoholic Social History Smoking Status: Former smoker Tobacco: How many years used: 5 second hand exposure: No alcohol intake: former substance use type: does not use Smoking Status: Former smoker alcohol intake frequency: a few times a month Substance Use Type: does not use Exam Narrative Exam Narrative: GENERAL: [40 year old patient appears stated age. Well-developed patient, in mild distress. Obviously uncomfortable in rubbing her right side HEAD: Atraumatic. Normocephalic. EYES: Pupils equal round and reactive. Extraocular motions intact. No scleral icterus. No injection or drainage. ENT: Nose without bleeding, purulent drainage. Throat without erythema, tonsillar hypertrophy or exudate. Airway patent. NECK: Trachea midline. Non tender CARDIOVASCULAR: Regular rate and rhythm without murmurs, gallops, or rubs. RESPIRATORY: Clear to auscultation. Breath sounds equal bilaterally. No wheezes, rales, or rhonchi. GASTROINTESTINAL: Abdomen soft, non-tender, nondistended. EXTREMITIES: No edema or joint tenderness. BACK: Nontender without deformity or crepitance. No flank tenderness. NEURO: AOx3. SKIN: No rash or erythema of visible areas Initial Vital Signs Initial Vital Signs: Vital Signs Temperature 98.5 F 08/19/21 16:49 Pulse Rate 68 08/19/21 16:49 Respiratory Rate 22 08/19/21 16:49 Blood Pressure 174/96 H 08/19/21 16:49 Pulse Oximetry 100 08/19/21 16:49 Course Orders Ordered: ED Orders 08/19/21 17:15 renal complete Stat 08/19/21 17:20 Complete Blood Count AUTO DIFF Stat Comprehensive Metabolic Panel Stat Discontinued Medications Hydromorphone HCl (Hydromorphone 0.5 Mg Inj) 0.5 mg IV NOW ONE Stop: 08/19/21 17:55 Last Admin: 08/19/21 18:00 Dose: 0.5 mg Documented by: KEO Sodium Chloride (Normal Saline 0.9%) 1,000 mls @ 1,000 mls/hr IV BOLUS ONE Stop: 08/19/21 18:13 Last Admin: 08/19/21 17:33 Dose: 1,000 mls/hr Documented by: KEO Ketorolac Tromethamine (Ketorolac 30 Mg/Ml Vial) 15 mg IV NOW ONE Stop: 08/19/21 17:15 Last Admin: 08/19/21 17:32 Dose: 15 mg Documented by: KEO Tamsulosin HCl (Tamsulosin 0.4 Mg Capsule) 0.4 mg PO NOW ONE Stop: 08/19/21 17:59 Last Admin: 08/19/21 18:01 Dose: 0.4 mg Documented by: KEO Vital Signs Vital signs: Vital Signs - 8 hr 08/19/21 16:49 08/19/21 18:29 08/19/21 18:30 Temperature 98.5 F Pulse Rate 68 60 Respiratory Rate 22 Blood Pressure 174/96 H 193/93 H Pulse Oximetry 100 98 99 MDM - Abdominal Pain Lab Data Result diagrams: 08/19/21 17:20 08/19/21 17:20 Labs: Lab Results 08/19/21 08/19/21 Range/Units 17:20 17:20 WBC 7.3 (4.5-11.0) X10^3/uL RBC 4.60 (4.0-5.2) X10^6/uL Hgb 12.0 (12.0-16.0) g/dL Hct 36.4 (36-46) % MCV 79.1 L (80-100) fL MCH 26.0 (26-34) PG MCHC 32.8 (30-36) % RDW 16.9 H (11.6-14.8) % Plt Count 196 (150-400) X10^3/uL Neut % (Auto) 65.9 (50-75) % Lymph % (Auto) 24.9 L (25-40) % [place] % (Auto) 7.0 (3-14) % Eos % (Auto) 1.4 L (2-4) % Baso % (Auto) 0.8 (0-2) % Neut # (Auto) 4800 (9755-0974) /uL Lymph # (Auto) 1800 (6701-8952) /uL [place] # (Auto) 500 (0-900) /uL Eos # (Auto) 100 (0-450) /uL Baso # (Auto) 100 (0-100) /uL Sodium 139 (137-145) mmol/L Potassium 3.8 D (3.4-5.1) mmol/L Chloride 102 (98-107) mmol/L Carbon Dioxide 31 (22-32) mmol/L BUN 9 (7-17) mg/dL Creatinine 0.99 (0.52-1.04) mg/dL Estimated GFR > 60.0 (>60) mL/min BUN/Creatinine Ratio 9.1 (6-22) Glucose 114 H (70-100) mg/dL Calcium 9.6 (8.4-10.2) mg/dL Total Bilirubin 0.2 (0.2-1.3) mg/dL AST 24 (14-36) IU/L ALT 19 (<35) IU/L Alkaline Phosphatase 91 (38-126) U/L Total Protein 7.7 (6.3-8.2) g/dL Albumin 4.7 (3.5-5.0) g/dL Globulin 3.0 (1.7-4.1) g/dL Albumin/Globulin Ratio 1.6 (1.0-2.8) MDM Narrative Medical decision making narrative: Patient with a known right UVJ stone has improved symptoms after above-stated therapies, no evidence sepsis or renal failure on serum labs and ultrasound shows a resolution of hydronephrosis. Patient is well controlled, she is tolerating orals. Return precautions given and questions answered to her apparent satisfaction Discharge Plan Departure Patient Disposition: Home Clinical Impression: Right ureteral calculus Instructions: DI for Kidney Stones Activity Restrictions/Additional Instructions: *You have been diagnosed with [right-sided kidney stone] *What to do: *Please continue to take your regular medications as directed. [ x] New medication prescriptions sent to your pharmacy: [[facility] ] [ ] New medication written as a paper prescription [ ] No new medications given *Please follow up with your primary care provider in 2-3 days, call for an appointment. Let them know you were seen in the Emergency Department and that we ask that you be seen in follow up. We will electronically transmit a record of today's note if your PCP is in our system *If you do not have a primary care provider please contact the [facility] Resource line at [phone]. They will ask some questions about your medical history and help get you set up with a doctor in the community. *Return to Emergency Department if you should have any new, worsening or concerning symptoms, such as [fever greater than 101 F, shaking chills, worsening pain, persistent vomiting or other bothersome symptoms] Prescriptions: New hydrocodone-acetaminophen 5-325 mg tablet 1 tab PO Q4-6H PRN (Reason: pain) Qty: 10 0RF ketorolac 10 mg tablet 10 mg PO Q6H PRN (Reason: pain) Qty: 14 0RF tamsulosin [Flomax] 0.4 mg capsule 0.4 mg PO DAILY Qty: 10 0RF ondansetron 4 mg tablet,disintegrating 4 mg PO TID-QID PRN (Reason: nausea and vomiting) Qty: 10 0RF No Action sertraline 100 mg tablet 200 mg PO DAILY 0RF lamotrigine 200 mg tablet 100 mg PO BID 0RF Cetirizine 10 mg (Zyrtec) See Rx Instructions .ROUTE .COMPLEX 0RF Label Comments: 1 TAB PO QDAY PRN Rx Instructions: 1 TAB PO QDAY PRN Loratadine 10 mg (Claritin) See Rx Instructions .ROUTE .COMPLEX 0RF Label Comments: 1 TAB PO PRN Rx Instructions: 1 TAB PO PRN fexofenadine 180 MG tablet 180 mg PO PRN Qty: 0 0RF multivitamin [Multiple Vitamins] 1 EACH tablet 1 tab PO QDAY Qty: 0 0RF ondansetron 4 mg tablet,disintegrating 4 mg PO Q6-8HP PRN (Reason: nausea and vomiting) Qty: 30 1RF aripiprazole [Abilify] 10 mg tablet 10 mg PO DAILY 0RF lisinopril-hydrochlorothiazide 10-12.5 mg tablet 1 tab PO DAILY Qty: 90 3RF acetaminophen 325 mg Tablet 325 mg PO PRN PRN (Reason: Headache) 0RF ibuprofen 200 mg Tablet 200 mg PO PRN PRN (Reason: Headache) 0RF Referrals: Rickey Diamond ARNP [Primary Care Provider] -
[2021-08-19] MEDS: KETOROLAC 30 MG/ML VIAL 15 MG IV (17:32)
[2021-08-19] MEDS: SODIUM CHLORIDE 0.9% 1,000 ML 1000 ML IV (17:33)
[2021-08-19 17:44] LABS: Alanine Aminotransferase 19 IU/L (<35); Albumin 4.7 g/dL (3.5-5.0); Albumin Globulin Ratio 1.6 (1.0-2.8); Alkaline Phosphatase 91 U/L (38-126); Aspartate Aminotransferase 24 IU/L (14-36); BUN Creatinine Ratio 9.1 (6-22); Bilirubin Total 0.2 mg/dL (0.2-1.3); Blood Urea Nitrogen 9 mg/dL (7-17); Calcium 9.6 mg/dL (8.4-10.2); Carbon Dioxide 31 mmol/L (22-32); Chloride 102 mmol/L (98-107); Estimated Glomerular Filt Rate > 60.0 mL/min (>60); Glucose 114 mg/dL (70-100); HEMOLYSIS < 15 (0-50); Potassium 3.8 mmol/L (3.4-5.1); Sodium 139 mmol/L (137-145); Total Protein 7.7 g/dL (6.3-8.2)
[2021-08-19 17:47] LABS: Add Manual Diff / Slide Review NO; Basophils Absolute Auto 100 /uL (0-100); Basophils Percent Auto 0.8 % (0-2); Eosinophils Absolute Auto 100 /uL (0-450); Eosinophils Percent Auto 1.4 % (2-4); Hematocrit 36.4 % (36-46); Lymphocytes Absolute Auto 1800 /uL (1100-4500); Lymphocytes Percent Auto 24.9 % (25-40); Mean Corpuscular HGB Conc 32.8 % (30-36); Mean Corpuscular Volume 79.1 fL (80-100); Monocytes Absolute Auto 500 /uL (0-900); Neutrophils Absolute Auto 4800 /uL (1500-7000); Neutrophils Percent Auto 65.9 % (50-75); Red Cell Distribution Width 16.9 % (11.6-14.8); White Blood Cell Count 7.3 X10^3/uL (4.5-11.0)
[2021-08-19] MEDS: HYDROMORPHONE 0.5 MG INJ IV (18:00)
[2021-08-19] MEDS: TAMSULOSIN 0.4 MG CAPSULE PO (18:01)
[2021-08-19] MEDS: ONDANSETRON 4 MG/2 ML INJ (18:10)
[2021-08-19 18:22] LABS: Platelet Count 196 X10^3/uL (150-400)
[2021-08-19 18:29] VITALS: O2SAT 98
[2021-08-19 18:30] VITALS: BP 193/93; PULSE 60; O2SAT 99
[2021-08-19 18:44] VITALS: BP 193/83; PULSE 60; RESP 16; O2SAT 97
== END 2021-08-19 18:45 | disposition home or self-care (01) ==
PROVIDERS: Emergency Provider Emergency Medicine; PCP Registered Nurse Diabetes Educator
DX: N20.1 Calculus of ureter (principal); Z87.891 Personal history of nicotine dependence; Z88.5 Allergy status to narcotic agent
CPT/HCPCS: 36415; 76770; 80053; 81003; 81025; 85025; 96361; 96374; 96375; 99284; J1170; J1885; J2405

== ENCOUNTER 2022-02-11 20:32 | Emergency (ER) | payer OTHER, SELFPAY ==
[2022-02-11] VITALS (8 sets, daily range): BP systolic 132–142; BP diastolic 62–92; PULSE 92–120; RESP 24; TEMP 36.9; O2SAT 96–99; BMI 34.8
--- NOTE | 2022-02-11 20:59 | ED_ITS ---
HPI - General Adult General Chief complaint: Abdominal Pain Stated complaint: abd pain s/p abd surgery 4 days ago Time Seen by Provider: 02/11/22 20:59 Source: patient Mode of arrival: Ambulatory History of Present Illness HPI narrative: 41-year-old woman with a history of depression, ADHD, migraine and umbilical hernia underwent umbilical hernia surgery with mesh placement robot assisted at [facility] with Dr. Lopez on February 05. She notes that with previous surgeries or other need for pain control she is a rapid metabolizer of narcotic pain medication and has not been using either oxycodone or hydrocodone because neither seem to be very effective. She initially had some right upper quadrant pain that seem to resolve and was likely related to the surgically induced pneumoperitoneum however over last 24 hours she has been getting significantly worsened presents with right upper quadrant right lower lung pain with fever, general malaise and a sense that something is ?wrong. She has been having regular bowel movements with no blood in it. Her surgical sites and lower portion of her abdomen are nontender in seem to be healing appropriately. She denies cough, palpitations, lower extremity edema, vomiting or diarrhea. Related Data Home Medications Medication Instructions Recorded Confirmed fexofenadine 180 mg tablet 180 mg PO PRN allergies ##0 08/30/12 04/30/20 multivitamin (Multiple Vitamins 1 tab PO QDAY ##0 07/28/16 04/30/20 tablet) acetaminophen 325 mg tablet 325 mg PO PRN PRN Headache 11/19/17 04/30/20 ibuprofen 200 mg tablet 200 mg PO PRN PRN Headache 11/19/17 04/30/20 Cetirizine 10 mg (Zyrtec) See Rx Instructions .Route .COMPLEX 05/04/18 04/30/20 Loratadine 10 mg (Claritin) See Rx Instructions .Route .COMPLEX 05/04/18 04/30/20 sertraline 100 mg tablet 200 mg PO DAILY 08/10/18 04/30/20 aripiprazole 10 mg tablet (Abilify) 10 mg PO DAILY 03/13/20 04/30/20 lamotrigine 200 mg tablet 100 mg PO BID 03/13/20 04/30/20 Previous Rx's Medication Instructions Recorded ondansetron 4 mg disintegrating 4 mg PO Q6-8HP PRN nausea and 08/05/18 tablet vomiting #30 tabs lisinopril 10 1 tab PO DAILY #90 tabs 05/01/20 mg-hydrochlorothiazide 12.5 mg tablet hydrocodone 5 mg-acetaminophen 325 1 tab PO Q4-6H PRN pain #10 tabs 08/19/21 mg tablet ketorolac 10 mg tablet 10 mg PO Q6H PRN pain #14 tabs 08/19/21 ondansetron 4 mg disintegrating 4 mg PO TID-QID PRN nausea and 08/19/21 tablet vomiting #10 tabs tamsulosin 0.4 mg capsule (Flomax) 0.4 mg PO DAILY #10 caps 08/19/21 hydromorphone 4 mg tablet 4 mg PO Q6H PRN pain #10 tabs 02/12/22 Allergies Allergy/AdvReac Type Severity Reaction Status Date / Time Penicillins AdvReac Severe TONGUE / Verified 04/30/20 13:49 FACIAL SWELLING tramadol AdvReac Intermediate BAD Verified 04/30/20 13:49 HEADACHES, VOMITING TREES Allergy Severe SEVERE Uncoded 04/30/20 13:49 HIVES Review of Systems Review of Systems Narrative: Remainder of complete review of systems is otherwise unremarkable except for that included in the HPI. Patient History Medical History Allergic rhinitis Anxiety Arthritis Binge eating disorder (02/06/15) Depression (11/03/10) Gastroesophageal reflux disease (02/06/15) Hernia of abdominal wall Hypertension Knee pain Mixed hyperlipidemia (02/06/15) Scoliosis (and kyphoscoliosis), idiopathic (02/06/15) Sleep apnea Spinal stenosis of lumbar region without neurogenic claudication (02/06/15) Surgical History History of tonsillectomy (1992) Hx of oral surgery (1983) Status post adenoidectomy (1992) Family History Father Age: 59 Hypertension Mother Age: 58 Arthritis Grandfather Alcoholic Social History Smoking Status: Former smoker Tobacco: How many years used: 5 second hand exposure: No alcohol intake: former substance use type: does not use Smoking Status: Former smoker alcohol intake frequency: a few times a month Substance Use Type: does not use Exam Initial Vital Signs Initial Vital Signs: Vital Signs Temperature 98.5 F 02/11/22 20:48 Pulse Rate 115 H 02/11/22 20:48 Respiratory Rate 24 02/11/22 20:48 Blood Pressure 142/92 H 02/11/22 20:48 Pulse Oximetry 99 02/11/22 20:48 Oxygen Delivery Method 02/11/22 20:48 General: Flushed and appears ill however Able to give a complete and coherent history. HEENT: Moist mucous membranes, normal sclera with reactive pupils, Neck: No JVD, supple Respiratory: Lungs are clear to auscultation, no wheezing no rales no rhonchi. Full and symmetrical air movement Cardiac: Regular rate and rhythm no murmurs no bruits Abdomen: Soft, right upper quadrant tenderness without rebound or guarding. Surgical trocar sites with some minor bruising but appearing to heal nicely. Umbilical site is clean and dry. Good bowel tones, no flank pain Skin: Warm and dry, no rashes Neurologic: Grossly neurologically intact with no obvious asymmetries or abnormalities Extremities: No trauma, well perfused Psych: Cooperative, appropriate insight and affect Course Orders Ordered: ED Orders 02/11/22 20:53 Consult to RELAY TESTER HELPER - [employer] Export Clerk Stat 02/11/22 20:57 EKG-12 Lead Stat 02/11/22 21:07 Complete Blood Count AUTO DIFF Stat Comprehensive Metabolic Panel Stat Lactate (Lactic Acid) Stat Lipase Stat 02/11/22 21:20 Blood Culture Stat 02/11/22 21:33 Urinalysis and Microscopic Stat 02/11/22 21:34 CT abdomen pelvis w con Stat Discontinued Medications Hydromorphone HCl (Hydromorphone 1 Mg Inj) 1 mg IV NOW ONE Stop: 02/11/22 21:33 Last Admin: 02/11/22 21:40 Dose: 1 mg Documented By: NR Sodium Chloride (Normal Saline 0.9%) 1,000 mls @ 1,000 mls/hr IV BOLUS ONE Stop: 02/11/22 22:31 Last Admin: 02/11/22 21:40 Dose: 1,000 mls/hr Documented By: NR Ondansetron HCl (Ondansetron 4 Mg/2 Ml Inj) 4 mg IV NOW ONE Stop: 02/11/22 21:33 Last Admin: 02/11/22 21:40 Dose: 4 mg Documented By: NR Vital Signs Vital signs: Vital Signs - 8 hr 02/11/22 20:48 02/11/22 20:50 02/11/22 20:50 Temperature 98.5 F Pulse Rate 115 H 120 H Respiratory Rate 24 Blood Pressure 142/92 H 142/92 H Pulse Oximetry 99 97 Oxygen Delivery Method Room Air 02/11/22 21:00 02/11/22 21:00 02/11/22 21:30 Temperature Pulse Rate 103 H Respiratory Rate Blood Pressure 142/90 H 138/72 Pulse Oximetry 97 Oxygen Delivery Method 02/11/22 21:30 Temperature Pulse Rate 92 H Respiratory Rate Blood Pressure Pulse Oximetry 96 Oxygen Delivery Method Medical Decision Making Lab Data Result diagrams: 02/11/22 21:07 02/11/22 21:07 Labs: Lab Results 02/11/22 02/11/22 02/11/22 Range/Units 21:07 21:07 21:07 WBC 9.2 (4.5-11.0) X10^3/uL RBC 4.04 (4.0-5.2) X10^6/uL Hgb 10.7 L (12.0-16.0) g/dL Hct 31.9 L (36-46) % MCV 78.9 L (80-100) fL MCH 26.4 (26-34) PG MCHC 33.5 (30-36) % RDW 17.1 H (11.6-14.8) % Plt Count 224 (150-400) X10^3/uL Neut % (Auto) 72.3 (50-75) % Lymph % (Auto) 18.9 L (25-40) % Bibb % (Auto) 7.1 (3-14) % Eos % (Auto) 1.1 L (2-4) % Baso % (Auto) 0.6 (0-2) % Neut # (Auto) 6700 (8298-2660) /uL Lymph # (Auto) 1700 (5018-3679) /uL Bibb # (Auto) 600 (0-900) /uL Eos # (Auto) 100 (0-450) /uL Baso # (Auto) 100 (0-100) /uL Sodium 134 L (137-145) mmol/L Potassium 3.7 (3.4-5.1) mmol/L Chloride 97 L (98-107) mmol/L Carbon Dioxide 25 (22-32) mmol/L BUN 13 (7-17) mg/dL Creatinine 0.73 (0.52-1.04) mg/dL Estimated GFR > 60 (>60) mL/min BUN/Creatinine Ratio 17.8 (6-22) Glucose 101 H (70-100) mg/dL Lactate 1.1 (0.7-2.1) mmol/L Calcium 8.7 (8.4-10.2) mg/dL Total Bilirubin < 0.1 L (0.2-1.3) mg/dL AST 16 (14-36) IU/L ALT 12 (<35) IU/L Alkaline Phosphatase 86 (38-126) U/L Total Protein 7.0 (6.3-8.2) g/dL Albumin 4.3 (3.5-5.0) g/dL Globulin 2.7 (1.7-4.1) g/dL Albumin/Globulin Ratio 1.6 (1.0-2.8) Lipase 203 (23-300) U/L Imaging Data CT scan - abdomen/pelvis: Radiologist's Impression: FINDINGS:? Image quality:? Excellent.? ? Lung bases:? There is minimal dependent atelectasis.? ? Heart:? Heart is normal in size. ? ? ABDOMEN: Liver:? No mass lesion. Gallbladder:? Within normal limits without calcified gallstones.? ? Biliary ducts:? No biliary ductal dilatation.? ? Pancreas:? Unremarkable.? ? Spleen:? Normal in size.? ? Adrenal Glands:? No adrenal nodules.? ? Kidneys and Ureters:? No hydronephrosis.? ? ? Stomach and Bowel:? Stomach and small bowel are normal in caliber and wall thickness.? No acute appendicitis.? There is colonic diverticulosis without acute diver ticulitis.? There is a short segment of mild colonic wall thickening at the splenic flexure.? Peritoneum:? No abnormal intraperitoneal fluid.? No free air.? ? Ventral Wall: ? No hernia.? Abdominal Nodes:? No retroperitoneal or mesenteric adenopathy by size criteria.? Vessels:? Aorta and inferior vena cava are normal in size.? ? PELVIS: Pelvic Organs:? Unremarkable.? ? Bladder:? Unremarkable.? ? Pelvic Nodes: No enlarged lymph nodes.? Miscellaneous: No inguinal hernias are seen. ? ? ? Bones:? There is a levoscoliosis of the lumbar spine.? Visualized osseous structures demonstrate no suspicious focal lesions. ? IMPRESSION:? ? 1. No acute intra-abdominal abnormality to correlate with patient's right upper quadrant pain.? Specifically, no calcified gallstones or CT evidence of cholecystitis. ? 2. Colonic diverticulosis without acute diverticulitis. ? 3. No evidence of appendicitis. ? 4. Short segment of mild colonic wall thickening in the the colon at the splenic flexure. ?Although the findings may reflect peristaltic activity, an intramural mass cannot be excluded.? Consider follow-up evaluation with colonoscopy.? ? ? Dictated by: Rosalio Armstrong M.D. on 02/11/2022 at 22:58 ? ? MDM Narrative Medical decision making narrative: 41-year-old woman now 6 days postop laparoscopic robot assisted umbilical hernia repair with mesh comes in feeling that something is getting worse, flushed and generally feeling unwell. White blood cell count is normal at 9.2 without significant left shift. Chemistries are equally unremarkable with normal LFTs. She is significantly tender in the right upper quadrant and CT scan of the abdomen is performed which shows no significant pathology to explain her pain. In the emergency department she was given 1 mg of Dilaudid along with 1 L of normal saline and was feeling significantly improved with the acutely toxic/ill- appearing no longer present. At this time, without any evidence of surgical complications urinary tract infection, pneumonia or alternate infection and feeling better she will be discharged home. Will have her try oral Dilaudid and see if perhaps this is more effective for the next couple of days rather than hydrocodone or oxycodone. A message was sent to Dr. Lopez so that he is aware of her ER visit and rather benign findings. At this point she is safe for home discharge Discharge Plan Departure Patient Disposition: Home Clinical Impression: Post-op pain Instructions: DI for Acute Abdominal Pain Activity Restrictions/Additional Instructions: Thank you for coming in today The amount of pain that your having in the right upper quadrant is certainly concerning. Your lab work was very reassuring with no suggestion of infection, liver or gallbladder abnormalities. The CT scan of your abdomen was equally reassuring. There does not appear to be any acute infection or surgical complication. I do not have a complete explanation for the right upper quadrant pain however I suspect does still simply postoperative pain and is going to improve. You responded nicely to Dilaudid in the emergency department. I am going to give you a small prescription of oral Dilaudid and see if this is more effective for you in terms of pain control than the oxycodone or hydrocodone that have been ineffective for you. The prescription was electronically transmitted to [facility] Using 400 mg of ibuprofen (2 [id number] pills) and 1 Tylenol every 6 hours can be very helpful in controlling pain, to this you can add 2-4 mg of Dilaudid/hydromorphone for the next couple of days. I have notified Dr. Lopez of your ER visit but I would recommend that you give his office a call to see if he has any additional suggestions. If you find that you are getting worse or develop any new symptoms, please feel free to return to the emergency department for further evaluation. Prescriptions: New hydromorphone 4 mg tablet 4 mg PO Q6H PRN (Reason: pain) Qty: 10 0RF No Action sertraline 100 mg tablet 200 mg PO DAILY lamotrigine 200 mg tablet 100 mg PO BID Cetirizine 10 mg (Zyrtec) See Rx Instructions .ROUTE .COMPLEX Label Comments: 1 TAB PO QDAY PRN Rx Instructions: 1 TAB PO QDAY PRN Loratadine 10 mg (Claritin) See Rx Instructions .ROUTE .COMPLEX Label Comments: 1 TAB PO PRN Rx Instructions: 1 TAB PO PRN fexofenadine 180 MG tablet 180 mg PO PRN Qty: 0 multivitamin [Multiple Vitamins] 1 EACH tablet 1 tab PO QDAY Qty: 0 ondansetron 4 mg tablet,disintegrating 4 mg PO Q6-8HP PRN (Reason: nausea and vomiting) Qty: 30 1RF aripiprazole [Abilify] 10 mg tablet 10 mg PO DAILY lisinopril-hydrochlorothiazide 10-12.5 mg tablet 1 tab PO DAILY Qty: 90 3RF hydrocodone-acetaminophen 5-325 mg tablet 1 tab PO Q4-6H PRN (Reason: pain) Qty: 10 0RF ketorolac 10 mg tablet 10 mg PO Q6H PRN (Reason: pain) Qty: 14 0RF tamsulosin [Flomax] 0.4 mg capsule 0.4 mg PO DAILY Qty: 10 0RF ondansetron 4 mg tablet,disintegrating 4 mg PO TID-QID PRN (Reason: nausea and vomiting) Qty: 10 0RF acetaminophen 325 mg Tablet 325 mg PO PRN PRN (Reason: Headache) ibuprofen 200 mg Tablet 200 mg PO PRN PRN (Reason: Headache) Referrals: Rickey Diamond ARNP [Primary Care Provider] -
[2022-02-11 21:18] LABS: Add Manual Diff / Slide Review NO; Basophils Absolute Auto 100 /uL (0-100); Basophils Percent Auto 0.6 % (0-2); Eosinophils Absolute Auto 100 /uL (0-450); Eosinophils Percent Auto 1.1 % (2-4); Hematocrit 31.9 % (36-46); Hemoglobin 10.7 g/dL (12.0-16.0); Lymphocytes Absolute Auto 1700 /uL (1100-4500); Lymphocytes Percent Auto 18.9 % (25-40); Mean Corpuscular HGB Conc 33.5 % (30-36); Mean Corpuscular Hemoglobin 26.4 PG (26-34); Mean Corpuscular Volume 78.9 fL (80-100); Monocytes Absolute Auto 600 /uL (0-900); Monocytes Percent Auto 7.1 % (3-14); Neutrophils Absolute Auto 6700 /uL (1500-7000); Neutrophils Percent Auto 72.3 % (50-75); Platelet Count 224 X10^3/uL (150-400); Red Blood Cell Count 4.04 X10^6/uL (4.0-5.2); Red Cell Distribution Width 17.1 % (11.6-14.8); White Blood Cell Count 9.2 X10^3/uL (4.5-11.0)
[2022-02-11 21:31] LABS: Alanine Aminotransferase 12 IU/L (<35); Albumin 4.3 g/dL (3.5-5.0); Albumin Globulin Ratio 1.6 (1.0-2.8); Alkaline Phosphatase 86 U/L (38-126); Aspartate Aminotransferase 16 IU/L (14-36); BUN Creatinine Ratio 17.8 (6-22); Blood Urea Nitrogen 13 mg/dL (7-17); Calcium 8.7 mg/dL (8.4-10.2); Carbon Dioxide 25 mmol/L (22-32); Chloride 97 mmol/L (98-107); Estimated Glomerular Filt Rate > 60 mL/min (>60); Globulin 2.7 g/dL (1.7-4.1); Glucose 101 mg/dL (70-100); HEMOLYSIS < 15 (0-50); Lipase 203 U/L (23-300); Potassium 3.7 mmol/L (3.4-5.1); Sodium 134 mmol/L (137-145)
[2022-02-11 21:33] LABS: Bilirubin Total < 0.1 mg/dL (0.2-1.3)
--- NOTE | 2022-02-11 21:34 | DI.CT.S_ITS ---
PROCEDURE: CT ABDOMEN PELVIS W CON INDICATIONS: RUQ pain post op laproscopic abd wall mesh/hernia repair TECHNIQUE: After the administration of IV contrast, axial sections were acquired from the lung bases to the pubic symphysis. Coronal and sagittal reformats were performed. For radiation dose reduction, the following was used: automated exposure control, adjustment of mA and/or kV according to patient size. COMPARISON: [facility], CT, CT ABDOMEN PELVIS W CON, 08/16/2021, 18:24. FINDINGS: Image quality: Excellent. Lung bases: There is minimal dependent atelectasis. Heart: Heart is normal in size. ABDOMEN: Liver: No mass lesion. Gallbladder: Within normal limits without calcified gallstones. Biliary ducts: No biliary ductal dilatation. Pancreas: Unremarkable. Spleen: Normal in size. Adrenal Glands: No adrenal nodules. Kidneys and Ureters: No hydronephrosis. Stomach and Bowel: Stomach and small bowel are normal in caliber and wall thickness. No acute appendicitis. There is colonic diverticulosis without acute diverticulitis. There is a short segment of mild colonic wall thickening at the splenic flexure. Peritoneum: No abnormal intraperitoneal fluid. No free air. Ventral Wall: No hernia. Abdominal Nodes: No retroperitoneal or mesenteric adenopathy by size criteria. Vessels: Aorta and inferior vena cava are normal in size. PELVIS: Pelvic Organs: Unremarkable. Bladder: Unremarkable. Pelvic Nodes: No enlarged lymph nodes. Miscellaneous: No inguinal hernias are seen. Bones: There is a levoscoliosis of the lumbar spine. Visualized osseous structures demonstrate no suspicious focal lesions. IMPRESSION: 1. No acute intra-abdominal abnormality to correlate with patient's right upper quadrant pain. Specifically, no calcified gallstones or CT evidence of cholecystitis. 2. Colonic diverticulosis without acute diverticulitis. 3. No evidence of appendicitis. 4. Short segment of mild colonic wall thickening in the the colon at the splenic flexure. Although the findings may reflect peristaltic activity, an intramural mass cannot be excluded. Consider follow-up evaluation with colonoscopy. Dictated by: Rosalio Armstrong M.D. on 02/11/2022 at 22:58 Approved by: Rosalio Armstrong M.D. on 02/11/2022 at 23:02
[2022-02-11] MEDS: ONDANSETRON 4 MG/2 ML INJ IV (21:40)
[2022-02-11] MEDS: SODIUM CHLORIDE 0.9% 1,000 ML 1000 ML IV (21:40)
[2022-02-11] MEDS: HYDROMORPHONE 1 MG INJ IV (21:40)
[2022-02-11 21:47] LABS: Lactate (Lactic Acid) 1.1 mmol/L (0.7-2.1)
[2022-02-12] VITALS: BP 120/64; PULSE 76; O2SAT 97
[2022-02-12 00:30] VITALS: BP 131/70; PULSE 78; O2SAT 97
[2022-02-12] MEDS: KETOROLAC 30 MG/ML VIAL 15 MG IV (00:42)
[2022-02-12] MEDS: HYDROMORPHONE 1 MG INJ IV (00:43)
[2022-02-12] MEDS: ONDANSETRON 4 MG/2 ML INJ IV (00:53)
[2022-02-12 01:00] VITALS: PULSE 75; O2SAT 96
[2022-02-12 01:18] VITALS: BP 124/77; PULSE 83; O2SAT 97
== END 2022-02-12 01:24 | disposition home or self-care (01) ==
PROVIDERS: Emergency Provider Emergency Medicine; PCP Registered Nurse Diabetes Educator
DX: G89.18 Other acute postprocedural pain (principal); R10.11 Right upper quadrant pain
CPT/HCPCS: 36415; 74177; 80053; 83605; 83690; 85025; 87040; 96361; 96374; 96375; 96376; 99284; J1170; J1885; J2405; Q9967

== ENCOUNTER → 2022-10-09 13:45 | Outpatient (CLI) | payer OTHER, SELFPAY ==
--- NOTE | 2022-10-09 | DI.MRI.S_ITS ---
PROCEDURE: MR HEAD/BRAIN WO/W CON INDICATIONS: Hemangioma unspecified site TECHNIQUE: Noncontrast axial T1 spin echo, axial T2 fast spin echo, sagittal and axial FLAIR, coronal T2 fast spin echo, axial gradient echo, axial diffusion and ADC through the brain. After the administration of contrast, axial and coronal and sagittal 3D VIBE or T1 spin echo with fat saturation through the brain. COMPARISON: [facility], , MR HEAD/BRAIN WO/W CON, 07/08/2018, 7:52. FINDINGS: Image quality: Excellent. CSF Spaces: Basal cisterns are patent. No extra-axial fluid collections. Ventricles are normal in size and shape. Brain: No midline shift. No acute intracranial bleeds or masses. The low gradient echo signal intensity focus within the right cerebellar hemisphere is unchanged. Adjacent venous angioma within the right cerebellar hemisphere, draining into the right transverse sinus is unchanged. The brainstem appears normal. Diffusion-weighted images demonstrate no acute ischemic insults. No chronic ischemic insults. Normal intravascular flow voids are present. Skull and face: Calvarial marrow is normal in signal. Orbits appear normal. Sinuses: Sinuses and mastoids appear clear. IMPRESSION: 1. Negative brain MRI. 2. 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 No change in adjacent venous angioma. Dictated by: Darlene Garcia M.D. on 10/09/2022 at 14:59 Approved by: Darlene Garcia M.D. on 10/09/2022 at 15:02
== END ==
PROVIDERS: PCP Registered Nurse Diabetes Educator; Referring Provider Psychiatry & Neurology Neurology; Visit Provider Psychiatry & Neurology Neurology
DX: D18.00 Hemangioma unspecified site (principal)
CPT/HCPCS: 70553

== ENCOUNTER → 2023-08-14 12:27 | Outpatient (CLI) | payer OTHER, SELFPAY ==
--- NOTE | 2023-08-14 | DI.CT.S_ITS ---
PROCEDURE: CT ABDOMEN PELVIS W CON INDICATIONS: LLQ ABD PAIN/ FLUID SEEN ON US TECHNIQUE: After the administration of intravenous contrast, axial sections acquired from the lung bases to the pubic symphysis. Coronal and sagittal reformats were performed. For radiation dose reduction, the following was used: automated exposure control, adjustment of mA and/or kV according to patient size. COMPARISON: [facility], CT, CT ABDOMEN PELVIS W CON, 02/11/2022, 21:39. Outside Facility, [facility], US PELVIC COMPLETE, 04/03/2023, 13:54. FINDINGS: Image quality: Diagnostic. Lower Chest: No significant findings. ABDOMEN: Liver: No solid mass. Gallbladder: Gallbladder sludge versus small stones. No wall thickening or pericholecystic edema to suggest acute cholecystitis. Biliary ducts: No biliary dilation. Pancreas: No ductal dilation. Spleen: Size is within normal limits. Adrenal Glands: No adrenal nodules. Kidneys and Ureters: No hydronephrosis. No solid mass. No complex renal cystic lesion which requires follow up. Stomach and Bowel: Normal colonic caliber, without significant wall thickening. Peritoneum: No abnormal intraperitoneal fluid. No free air. Ventral Wall: No significant ventral hernia. Abdominal Nodes: No retroperitoneal or mesenteric adenopathy by size criteria. Colonic diverticulosis without evidence of diverticulitis. Vessels: Aorta and inferior vena cava are normal in size. PELVIS: Pelvic Organs: A couple of intramural uterine fibroids, largest measuring 2.7 cm in the mid uterine segment along the anterior margin. No fluid collection above the uterus. Bladder: No bladder wall thickening, accounting for underdistention. Pelvic Nodes: No enlarged lymph nodes. Miscellaneous: No inguinal hernias are seen. Bones: No aggressive osseous abnormality. Convex left scoliosis centered at L2. IMPRESSION: No fluid collection along the superior margin of the uterus. Dictated by: Jonh Krishnamurthy M.D. on 08/16/2023 at 15:28 Approved by: John Krishnamurthy M.D. on 08/16/2023 at 15:31
== END ==
LOC: CT 12:28
PROVIDERS: PCP Registered Nurse Diabetes Educator; Referring Provider Internal Medicine; Visit Provider Internal Medicine
DX: R18.8 Other ascites (principal); K57.90 Diverticulosis of intestine, part unspecified, without perforation or abscess without bleeding; D25.1 Intramural leiomyoma of uterus; M41.9 Scoliosis, unspecified
CPT/HCPCS: 74177; Q9967